=== PATIENT | female | born 1960 | race Two or more races ===

== ENCOUNTER 2021-01-15 22:10 | Inpatient (IN) | payer MEDICAID ==
[~2021-01-15] VITALS: Ht 152.4 cm; Wt 68.3 kg
[2021-01-15 22:54] LABS: Basophils # (auto) 0.1 10 ^3/uL (0-0.2); Basophils % (auto) 0.7 % (0.0-2.0); Eosinophils # (auto) 0.4 10 ^3/uL (0-0.8); Eosinophils % (auto) 5.1 % (0.0-7.0); Hematocrit 37.3 % (36.0-46.0); Hemoglobin 12.8 g/dL (12.2-16.2); Lymphocytes # (auto) 2.8 10 ^3/uL (0.4-5.4); Lymphocytes % (auto) 34.9 % (10.0-50.0); Mean Corpuscular Hemoglobin 30.5 pg (28.0-32.0); Mean Corpuscular Hgb Conc. 34.3 g/dL (32.0-36.0); Mean Corpuscular Volume 88.9 fL (80.0-100.0); Monocytes # (auto) 0.8 10 ^3/uL (0-1.3); Monocytes % (auto) 9.6 % (0.0-12.0); Neutrophils % (auto) 49.7 % (37.0-80.0); Nucleated Red Blood Cells % 0.1 %; Platelet Count (auto) 254 10^3/uL (140-450); Red Cell Distribution Width 14.1 % (11.8-14.3)
[2021-01-15 23:13] LABS: INR 0.94 (0.9-1.15); Partial Thromboplastin Time 26.2 sec (23.0-31.2)
[2021-01-15 23:19] LABS: Albumin 3.9 g/dL (3.4-5.0); Anion Gap 10 (5-15); Blood Urea Nitrogen 16 mg/dL (7-18); Calcium 8.7 mg/dL (8.5-10.1); Carbon Dioxide 31 mmol/L (21-32); Chloride 95 mmol/L (98-107); Glucose 278 mg/dL (74-106); Potassium 3.9 mmol/L (3.5-5.1); Sodium 136 mmol/L (136-145)
[2021-01-15 23:21] LABS: Alanine Aminotransferase 25 U/L (13-56); Aspartate Aminotransferase 14 U/L (15-37); BUN/Creatinine Ratio 18.2; GFR African American 84 mL/min; GFR Non-African American 69 mL/min
[2021-01-15 23:26] LABS: Alkaline Phosphatase 87 U/L (45-117); Bilirubin, Total 0.3 mg/dL (0.2-1.0)
[2021-01-16] MEDS ORDERED: BENA20TA14 PO (02:49)
[2021-01-16] MEDS ORDERED: HYDR25TA5 PO (02:49)
[2021-01-16] MEDS ORDERED: METF-372 PO (02:49)
[2021-01-16] MEDS ORDERED: NITROGLYCERIN 0.4 MG SL TAB SL PRN (03:00)
[2021-01-16] MEDS ORDERED: ACETAMINOPHEN 325 MG TAB PO PRN (03:00)
[2021-01-16] MEDS ORDERED: ONDANSETRON HCL 4 MG/2 ML VIAL IV PRN (03:00)
[2021-01-16] MEDS ORDERED: MORPHINE SULF INJ 2 MG/ML SYRINGE 1ML IV PRN (03:00)
[2021-01-16] MEDS ORDERED: DEXTROSE (50%) 50ML SYRG IV PRN (03:00)
[2021-01-16] MEDS ORDERED: cloNIDine HCL 0.1 MG TAB PO PRN (03:00)
[2021-01-16] MEDS ORDERED: TEMAZEPAM 15 MG CAP PO PRN (03:00)
[2021-01-16 06:50] VITALS: BP 151/74
[2021-01-16] MEDS: InsuLIN REG 1unit/0.01ml Soln (100units/ml) SC SCH ×4 (07:00→21:57)
[2021-01-16] MEDS: ACCU-CHEK COMFORT CURVE STRIP VI SCH ×4 (07:17→21:54)
[2021-01-16 08:00] VITALS: BP 155/81
[2021-01-16] MEDS: ASPirin 81 mg TAB PO SCH (09:31)
[2021-01-16] MEDS: FAMOTIDINE 20 MG TAB PO SCH (09:31)
[2021-01-16] MEDS: LISINOPRIL 10 MG TAB PO SCH (09:33)
[2021-01-16] MEDS: ENOXAPARIN SOD 40 MG/0.4 ML SYRINGE SC SCH (09:33)
[2021-01-16] MEDS ORDERED: FAMOTIDINE 20 MG TAB PO SCH (10:00)
[2021-01-16 13:00] VITALS: BP 139/82
[2021-01-16 17:00] VITALS: BP 138/71
[2021-01-16] MEDS: METOPROLOL TARTRATE 25 MG TAB PO SCH (21:52)
[2021-01-16] MEDS ORDERED: ATORVASTATIN 20 MG TAB PO SCH (22:00)
[2021-01-16 23:07] VITALS: BP 151/72
[2021-01-17 04:42] VITALS: BP 147/70
[2021-01-17] MEDS: ACCU-CHEK COMFORT CURVE STRIP VI SCH ×3 (06:22→17:19)
[2021-01-17] MEDS: InsuLIN REG 1unit/0.01ml Soln (100units/ml) SC SCH ×3 (06:22→17:20)
[2021-01-17 06:51] LABS: Basophils # (auto) 0 10 ^3/uL (0-0.2); Basophils % (auto) 0.7 % (0.0-2.0); Eosinophils # (auto) 0.4 10 ^3/uL (0-0.8); Eosinophils % (auto) 5.4 % (0.0-7.0); Hemoglobin 12.2 g/dL (12.2-16.2); Lymphocytes # (auto) 2.2 10 ^3/uL (0.4-5.4); Lymphocytes % (auto) 34.6 % (10.0-50.0); Mean Corpuscular Hemoglobin 30.4 pg (28.0-32.0); Mean Corpuscular Hgb Conc. 33.9 g/dL (32.0-36.0); Mean Corpuscular Volume 89.5 fL (80.0-100.0); Monocytes # (auto) 0.8 10 ^3/uL (0-1.3); Monocytes % (auto) 11.8 % (0.0-12.0); Neutrophils # (auto) 3.1 10 ^3/uL (1.6-8.6); Neutrophils % (auto) 47.5 % (37.0-80.0); Nucleated Red Blood Cells % 0.1 %; Platelet Count (auto) 244 10^3/uL (140-450); Red Blood Cells 4.02 10^6/uL (4.0-5.20); Red Cell Distribution Width 14.1 % (11.8-14.3); White Blood Cell 6.5 10^3/uL (4.4-10.8)
[2021-01-17 07:10] LABS: Potassium 3.7 mmol/L (3.5-5.1)
[2021-01-17 07:19] LABS: Albumin 3.3 g/dL (3.4-5.0); Bilirubin, Total 0.4 mg/dL (0.2-1.0); Calcium 8.5 mg/dL (8.5-10.1)
[2021-01-17 09:00] VITALS: BP 156/75
[2021-01-17] MEDS: ASPirin 81 mg TAB PO SCH (09:46)
[2021-01-17] MEDS: METOPROLOL TARTRATE 25 MG TAB PO SCH (09:48)
[2021-01-17] MEDS: FAMOTIDINE 20 MG TAB PO SCH (09:49)
[2021-01-17] MEDS: LISINOPRIL 10 MG TAB PO SCH (09:50)
[2021-01-17] MEDS: ENOXAPARIN SOD 40 MG/0.4 ML SYRINGE SC SCH (09:51)
[2021-01-17 13:00] VITALS: BP 132/76
[2021-01-17 16:04] VITALS: BP 133/77
[2021-01-17] MEDS ORDERED: METOPROLOL TARTRATE 25 MG TAB PO ONE (17:00)
[2021-01-17] MEDS ORDERED: ATORVASTATIN 20 MG TAB PO ONE (17:00)
[2021-01-17 17:03] VITALS: BP 149/71
== END 2021-01-17 17:58 | disposition home or self-care (01) | DRG 199 ==
LOC: ER 22:14 → TELE 22:15 → TELE-EAST 01-16 06:27 → TELE-CENTR 01-16 10:35
PROVIDERS: ADMIT Nurse Practitioner; ATTEND Internal Medicine
DX: I16.1 Hypertensive emergency (principal); E11.21 Type 2 diabetes mellitus with diabetic nephropathy; Z20.822 Contact with and (suspected) exposure to COVID-19; I11.9 Hypertensive heart disease without heart failure; E66.9 Obesity, unspecified; F17.210 Nicotine dependence, cigarettes, uncomplicated; E78.5 Hyperlipidemia, unspecified; K21.9 Gastro-esophageal reflux disease without esophagitis; Z79.82 Long term (current) use of aspirin; Z79.899 Other long term (current) drug therapy; Z82.49 Family history of ischemic heart disease and other diseases of the circulatory system; Z83.3 Family history of diabetes mellitus; Z68.29 Body mass index [BMI] 29.0-29.9, adult
CPT/HCPCS: 36415; 71045; 80053; 82962; 83036; 83735; 83880; 84484; 85025; 85610; 85730; 87426; 93005; 93306; G0378; J1815

== ENCOUNTER 2021-05-15 11:26 | Emergency (ER) | payer MEDICAID ==
[~2021-05-15] VITALS: Ht 152.4 cm; Wt 66.2 kg
[~2021-05-15 11:26] MED LIST: BENA20TA14 PO; HYDR25TA5 PO; METF-372 PO
[2021-05-15] MEDS ORDERED: cloNIDine HCL 0.1 MG TAB PO ONE (11:45)
[2021-05-15 14:18] LABS: Urine Bacteria NONE SEEN /hpf (None Seen); Urine Blood Negative /uL (Negative); Urine Hyaline Cast FEW /lpf (0 - 2); Urine Specific Gravity 1.031 (1.001-1.035); Urine WBC 14 /hpf (0 - 5)
[2021-05-15 14:34] LABS: Basophils # (auto) 0 10 ^3/uL (0-0.2); Basophils % (auto) 0.4 % (0.0-2.0); Eosinophils # (auto) 0.2 10 ^3/uL (0-0.8); Eosinophils % (auto) 2.8 % (0.0-7.0); Hematocrit 37.7 % (36.0-46.0); Hemoglobin 12.8 g/dL (12.2-16.2); Lymphocytes # (auto) 2.4 10 ^3/uL (0.4-5.4); Mean Corpuscular Hemoglobin 29.9 pg (28.0-32.0); Mean Corpuscular Hgb Conc. 33.9 g/dL (32.0-36.0); Monocytes # (auto) 0.8 10 ^3/uL (0-1.3); Monocytes % (auto) 9.5 % (0.0-12.0); Neutrophils % (auto) 59.3 % (37.0-80.0); Red Blood Cells 4.28 10^6/uL (4.0-5.20); White Blood Cell 8.5 10^3/uL (4.4-10.8)
[2021-05-15 14:44] LABS: Albumin 3.9 g/dL (3.4-5.0); Anion Gap 8 (5-15); Blood Urea Nitrogen 18 mg/dL (7-18); Calcium 8.9 mg/dL (8.5-10.1); Carbon Dioxide 28 mmol/L (21-32); Chloride 92 mmol/L (98-107); Potassium 3.9 mmol/L (3.5-5.1); Sodium 128 mmol/L (136-145)
[2021-05-15 14:55] LABS: Alanine Aminotransferase 39 U/L (13-56); Alkaline Phosphatase 89 U/L (45-117); Aspartate Aminotransferase 17 U/L (15-37); BUN/Creatinine Ratio 15.9; Bilirubin, Total 0.4 mg/dL (0.2-1.0); GFR African American 63 mL/min; GFR Non-African American 52 mL/min; Total Protein 8.2 g/dL (6.4-8.2)
[2021-05-15 15:02] LABS: Glucose 414 mg/dL (74-106)
[2021-05-15] MEDS ORDERED: cefTRIAXone 1GM/50ML D5W 50 ML IV ONE (16:00)
[2021-05-15] MEDS ORDERED: InsuLIN REG 1unit/0.01ml Soln (100units/ml) IV ONE (16:00)
[2021-05-15] MEDS ORDERED: SODIUM CHLORIDE 0.9% 1,000 ML IV ONE ×2 (16:00)
[2021-05-15 18:22] VITALS: BP 144/81
== END 2021-05-15 16:19 | disposition home or self-care (01) ==
LOC: ER 11:26
DX: N39.0 Urinary tract infection, site not specified (principal); E11.65 Type 2 diabetes mellitus with hyperglycemia; I10 Essential (primary) hypertension; R51.9 Headache, unspecified; K21.9 Gastro-esophageal reflux disease without esophagitis; F17.210 Nicotine dependence, cigarettes, uncomplicated; Z79.84 Long term (current) use of oral hypoglycemic drugs; Z79.899 Other long term (current) drug therapy
CPT/HCPCS: 36415; 70450; 80053; 81001; 82962; 84484; 85025; 93005; 96361; 96365; 96375; 99285; J0696; J1815

== ENCOUNTER → 2022-09-10 | Day surgery (SDC) | payer MEDICAID ==
[2022-09-09 14:51] LABS: Basophils # (auto) 0 10 ^3/uL (0-0.2); Basophils % (auto) 0.6 % (0.0-2.0); Eosinophils # (auto) 0.3 10 ^3/uL (0-0.8); Eosinophils % (auto) 3.7 % (0.0-7.0); Hematocrit 37.3 % (36.0-46.0); Hemoglobin 12.3 g/dL (12.2-16.2); Lymphocytes # (auto) 2.3 10 ^3/uL (0.4-5.4); Lymphocytes % (auto) 32.8 % (10.0-50.0); Mean Corpuscular Hemoglobin 29.5 pg (28.0-32.0); Mean Corpuscular Hgb Conc. 33.1 g/dL (32.0-36.0); Mean Corpuscular Volume 89.1 fL (80.0-100.0); Monocytes # (auto) 0.8 10 ^3/uL (0-1.3); Monocytes % (auto) 11.1 % (0.0-12.0); Neutrophils # (auto) 3.6 10 ^3/uL (1.6-8.6); Neutrophils % (auto) 51.8 % (37.0-80.0); Red Blood Cells 4.18 10^6/uL (4.0-5.20); Red Cell Distribution Width 13.9 % (11.8-14.3)
[2022-09-09 15:11] LABS: INR 0.97 (0.9-1.15); Partial Thromboplastin Time 27.6 sec (24.6-33.4)
[2022-09-09 15:14] LABS: Albumin 3.6 g/dL (3.4-5.0); BUN/Creatinine Ratio 17.1; Calcium 8.6 mg/dL (8.5-10.1); Potassium 3.6 mmol/L (3.5-5.1)
[2022-09-09 15:16] LABS: Bilirubin, Total 0.3 mg/dL (0.2-1.0); Total Protein 7.5 g/dL (6.4-8.2)
[~2022-09-10] VITALS: Ht 152.4 cm; Wt 67.1 kg
[~2022-09-10] MED LIST changes: +ATOR20TA50 PO; +FLUT1SPR5; +GLIM4TAB42 PO; +INSU1INJ19 SC; +LIDOCAINE VISCOUS 2% 15ML UD ONE; +LORA-622 PO; +METO25TA5 PO; +MIDAZOLAM HCL 5 MG/ML-1ML VIAL ONE; +NAP500T PO; +OMEP20TA PO; +diphenhdrAMINE HCL 50 MG/1 ML VL ONE; +fentaNYL CITRATE 100 MCG/2 ML VL ONE
[2022-09-10 15:05] VITALS: BP 137/68
== END | disposition home or self-care (01) ==
LOC: GI 12:29
PROVIDERS: ATTEND Internal Medicine Gastroenterology
DX: K21.9 Gastro-esophageal reflux disease without esophagitis (principal); K44.9 Diaphragmatic hernia without obstruction or gangrene; K29.50 Unspecified chronic gastritis without bleeding; R13.10 Dysphagia, unspecified; I10 Essential (primary) hypertension; E11.9 Type 2 diabetes mellitus without complications; E78.5 Hyperlipidemia, unspecified; Z79.899 Other long term (current) drug therapy; Z98.890 Other specified postprocedural states; Z87.891 Personal history of nicotine dependence; Z20.822 Contact with and (suspected) exposure to COVID-19
CPT/HCPCS: 36415; 43239; 43450; 80053; 82962; 85025; 85610; 85730; 88305; 88312; 88342; J1200; J2250; J3010; U0003; 99152; 99153

== ENCOUNTER 2023-09-10 13:50 | Emergency (ER) | payer OTHER, MEDICAID ==
[~2023-09-10] VITALS: Ht 149.9 cm; Wt 65.9 kg
[~2023-09-10 13:50] MED LIST changes: +BENA-36 PO; -BENA20TA14 PO; -FLUT1SPR5; -LIDOCAINE VISCOUS 2% 15ML UD ONE; -MIDAZOLAM HCL 5 MG/ML-1ML VIAL ONE; -diphenhdrAMINE HCL 50 MG/1 ML VL ONE; -fentaNYL CITRATE 100 MCG/2 ML VL ONE
[2023-09-10] MEDS ORDERED: MECLIZINE HCL 25 MG TAB PO ONE (14:30)
[2023-09-10 14:47] LABS: Basophils # (auto) 0 10 ^3/uL (0-0.2); Basophils % (auto) 0.5 % (0.0-2.0); Eosinophils # (auto) 0.3 10 ^3/uL (0-0.8); Eosinophils % (auto) 4.1 % (0.0-7.0); Hemoglobin 12.9 g/dL (12.2-16.2); Lymphocytes # (auto) 2.6 10 ^3/uL (0.4-5.4); Mean Corpuscular Hemoglobin 29.9 pg (28.0-32.0); Mean Corpuscular Hgb Conc. 33.1 g/dL (32.0-36.0); Mean Corpuscular Volume 90.3 fL (80.0-100.0); Monocytes # (auto) 0.7 10 ^3/uL (0-1.3); Monocytes % (auto) 10.1 % (0.0-12.0); Neutrophils # (auto) 3.4 10 ^3/uL (1.6-8.6); Neutrophils % (auto) 48.3 % (37.0-80.0); Red Blood Cells 4.32 10^6/uL (4.0-5.20); Red Cell Distribution Width 14.5 % (11.8-14.3); White Blood Cell 7.2 10^3/uL (4.4-10.8)
[2023-09-10 15:05] LABS: Alanine Aminotransferase 17 U/L (7-40); Albumin 4.7 g/dL (3.2-4.8); Alkaline Phosphatase 71 U/L (46-116); Anion Gap 6 (5-15); Aspartate Aminotransferase 10 U/L (13-40); BUN/Creatinine Ratio 14.8 (10.0-20.0); Bilirubin, Total 0.3 mg/dL (0.2-1.0); Blood Urea Nitrogen 12 mg/dL (9-23); Calcium 9.9 mg/dL (8.5-10.1); Carbon Dioxide 29 mmol/L (20-30); Chloride 107 mmol/L (98-107); Glucose 94 mg/dL (74-106); INR 1.04 (0.9-1.15); Potassium 3.8 mmol/L (3.5-5.1); Prothrombin Time 10.9 sec (9.3-11.8); Sodium 142 mmol/L (136-145); Total Protein 7.3 g/dL (5.7-8.2)
[2023-09-10] MEDS ORDERED: ZOFR4T PO (15:41)
[2023-09-10] MEDS ORDERED: MECL25CH38 PO (15:41)
[2023-09-10 16:26] VITALS: BP 140/76; PULSE 68; RESP 15; TEMP 97.8; O2SAT 100
== END 2023-09-10 16:33 | disposition home or self-care (01) ==
LOC: ER 13:50
DX: I10 Essential (primary) hypertension (principal); R42 Dizziness and giddiness; E11.9 Type 2 diabetes mellitus without complications; K21.9 Gastro-esophageal reflux disease without esophagitis; F17.210 Nicotine dependence, cigarettes, uncomplicated; Z98.890 Other specified postprocedural states; Z86.2 Personal history of diseases of the blood and blood-forming organs and certain disorders involving the immune mechanism
CPT/HCPCS: 36415; 70450; 71045; 80053; 83735; 83880; 84484; 85025; 85610; 85730; 99284; J8597